=== PATIENT | female | born 1985 | race African-American/Black ===

== ENCOUNTER 2018-12-12 22:24 | Emergency (ER) | payer OTHER ==
[2018-12-12 22:32] VITALS: BP 101/58; PULSE 73; TEMP 98.8; BMI 24.4
--- NOTE | 2018-12-12 23:31 | PDOC ---
History of Present Illness - General Chief Complaint: Injury Stated Complaint: LACERTION Time Seen by Provider: 12/12/18 23:30 Past History - Past Medical History Allergies/Adverse Reactions: Allergies Allergy/AdvReac Type Severity Reaction Status Date / Time No Known Allergies Allergy Verified 06/20/11 15:22 Home Medications: Ambulatory Orders Ferrous Sulfate [Iron] 325 mg PO BID 06/20/11 Pnv Comb.no58/Iron Bisgly/FA [ Capsule] 1 each PO 06/20/11 Valacyclovir HCl [Valtrex] 500 mg PO BID 06/20/11 Ibuprofen [Motrin -] 600 mg PO Q4H PRN #0 tablet 06/24/11 Asthma: No Cancer: No Cardiac Disorders: No COPD: No Diabetes: No HTN: No Seizures: No Thyroid Disease: No - Suicide/Smoking/Psychosocial Hx Smoking History: Never smoked Hx Alcohol Use: No Drug/Substance Use Hx: No Hx Substance Use Treatment: No *Physical Exam - Vital Signs Last Vital Signs Temp Pulse Resp BP Pulse Ox 98.8 F 73 18 101/58 L 98 12/12/18 22:30 12/12/18 22:30 12/12/18 22:30 12/12/18 22:30 12/12/18 22:30
--- NOTE | 2018-12-13 01:59 | PDOC ---
History of Present Illness - General Chief Complaint: Injury Stated Complaint: LACERTION Time Seen by Provider: 12/12/18 23:30 History Source: Patient Exam Limitations: No Limitations - History of Present Illness Initial Comments: 33 year old female with no PMH up to date on vaccinations, presented to ED for finger injury just [employer]. Pt reported she was cutting steak with a knife, and accidentally cut the tip of her first left finger, resulting in excessive bleeding, prompting her to come to the ED. Pt denied numbness, weakness, decreased ROM, lightheadedness, chest pain, shortness of breath. Pt stated her tetanus was <10 years ago. ROS General: denied fever, chills, generalized weakness. HEENT: denied sore throat, rhinorrhea, ear pain. Cardiovascular: denied chest pain, palpitations, syncope, diaphoresis. Respiratory: denied shortness of breath, cough, sputum production, hemoptysis. Gastrointestinal: denied abdominal pain, nausea, vomiting, diarrhea, constipation, blood in stool. Genitourinary: denied dysuria, increased urinary frequency, hematuria, urinary incontinence, flank pain. Back: denied back pain. Musculoskeletal: admitted to bleeding from finger. denied joint pain, muscle pain, joint swelling. Neurological: denied headache, dizziness, numbness, tingling, weakness. Integumentary: denied rash, abrasion. Hematologic/Lymphatic: denied bruising or bleeding. PE Constitutional: Well-nourished, Well-developed, appearing stated age. HEENT: head is normocephalic, atraumatic. EOMI. PERRLA. Neck: supple. Full ROM. Cardiovascular: regular heart rhythm. no murmurs. no pericardial friction rub. Respiratory: clear to auscultation bilaterally. no crackles, rhonchi or wheezing. no stridor. Gastrointestinal: soft, nontender. normal bowel sounds. no rebound, guarding, masses. Extremities: peripheral pulses intact. no lower extremity edema. Left hand: tip of the left fifth finger avulsive wound without active bleeding. full ROM left first finger. left first finger no erythema, no sign of infection. left first finger neurovasulcarly intact. Neurological: CN 2-12 grossly intact. moves all four extremities. Psych: awake, alert, oriented x3. follows commands. answers questions appropriately. Past History - Past Medical History Allergies/Adverse Reactions: Allergies Allergy/AdvReac Type Severity Reaction Status Date / Time No Known Allergies Allergy Verified 06/20/11 15:22 Home Medications: Ambulatory Orders Ferrous Sulfate [Iron] 325 mg PO BID 06/20/11 Pnv Comb.no58/Iron Bisgly/FA [ Capsule] 1 each PO 06/20/11 Valacyclovir HCl [Valtrex] 500 mg PO BID 06/20/11 Ibuprofen [Motrin -] 600 mg PO Q4H PRN #0 tablet 06/24/11 Asthma: No Cancer: No Cardiac Disorders: No COPD: No Diabetes: No HTN: No Seizures: No Thyroid Disease: No - Suicide/Smoking/Psychosocial Hx Smoking History: Never smoked Hx Alcohol Use: No Drug/Substance Use Hx: No Hx Substance Use Treatment: No *Physical Exam - Vital Signs Last Vital Signs Temp Pulse Resp BP Pulse Ox 98.8 F 73 18 101/58 L 98 12/12/18 22:30 12/12/18 22:30 12/12/18 22:30 12/12/18 22:30 12/12/18 22:30 Medical Decision Making - Medical Decision Making 33 year old female with above PMH presented to ED for avulsion finger injury. Initial Vital Signs Temp Pulse Resp BP Pulse Ox 98.8 F 73 18 101/58 L 98 12/12/18 22:30 12/12/18 22:30 12/12/18 22:30 12/12/18 22:30 12/12/18 22:30 Afebrile. No tachycardia. No tachypnea. Mild hypotension, normal variant for age. No hypoxia on room air. Labs ordered: none Medications ordered: ibuprofen 600 mg PO once, boostrix Imaging ordered: none Surgicel placed to the wound. Pt informed of return precautions. Pt discharged. *DC/Admit/Observation/Transfer Diagnosis at time of Disposition: Avulsion of skin of index finger - Discharge Dispostion Disposition: HOME Condition at time of disposition: Improved Decision to Admit order: No - Referrals - Patient Instructions Additional Instructions: Apply compression to the wound if you see bleeding. Keep the wound 100% clean and dry for 24 hours. The surgicel will fall off on its own. After that period cover with bacitracin and gauze - change the dressing daily. When showering allow the water to flow over the wound, do not scrub, do not add soap. Follow up with your primary care doctor within 3 days. Your care is not complete until you follow up. Take ibuprofen over the counter for pain, take as advised on label. Return to the Emergency Department for chest pain, shortness of breath, bleeding that will not stop with compression, weakness, numbness, tingling or any other new, worsening or concerning symptoms. - Post Discharge Activity Forms/Work/School Notes: Back to Work
[2018-12-13] MEDS ORDERED: IBUPROFEN 600 MG TABLET (FP) PO ONE ×2 (02:03→02:14)
[2018-12-13] MEDS ORDERED: DIPHTH,PERTUSS(ACELL),TET 0.5 ML DISP.SYRIN IM ONE ×2 (02:03→02:13)
--- NOTE | 2018-12-13 02:04 | PDOC ---
Attending Attestation - Resident Resident Name: Gina Romero - ED Attending Attestation I have performed the following: I have examined & evaluated the patient, The case was reviewed & discussed with the resident, I agree w/resident's findings & plan, Exceptions are as noted - HPI HPI: 12/13/18 02:04 33 yo female cut her left first finger on the tip of her DIP with a knife - Physicial Exam PE: 12/13/18 03:05 there is a small avulsive wound on the tip of her left finger DIP - Medical Decision Making 12/13/18 03:06 no sutures are needed/tetanus updated 12/13/18 03:07 finger wound/ discharge home
== END 2018-12-13 02:08 | disposition home or self-care (01) ==
LOC: JER 22:24 → JERFT 22:24 → JER 12-13 02:08
PROC: 3E0234Z Introduction of Serum, Toxoid and Vaccine into Muscle, Percutaneous Approach (ICD-10-PCS; principal; 2018-12-12)
DX: S61.211A Laceration without foreign body of left index finger without damage to nail, initial encounter (principal); W26.0XXA Contact with knife, initial encounter; Y93.G1 Activity, food preparation and clean up; Y92.030 Kitchen in apartment as the place of occurrence of the external cause; Y99.8 Other external cause status
CPT/HCPCS: 90715; 99281-25